=== PATIENT | female | born 1990 | race Caucasian/White ===

== ENCOUNTER 2018-06-05 22:07 | Emergency (ER) | payer BC, OTHER | END 2018-06-05 22:59 | disposition home or self-care (01) | LOC: ERS 22:07 | DX: S61.210A Laceration without foreign body of right index finger without damage to nail, initial encounter (principal); E10.9 Type 1 diabetes mellitus without complications; F32.9 Major depressive disorder, single episode, unspecified; W27.2XXA Contact with scissors, initial encounter | CPT/HCPCS: 12001 ==